=== PATIENT | male | born 1965 ===

== ENCOUNTER 2017-10-24 14:28 | Emergency (ER) | payer OTHER ==
--- NOTE | 2017-10-24 17:00 | ED PDOC ---
Lower Extremity Pain/Injury Time Seen by Provider: 10/24/17 16:06 Chief Complaint (Nursing): Lower Extremity Problem/Injury Chief Complaint (Provider): Lower Extremity Problem/Injury History Per: Patient, Family (daughter) History/Exam Limitations: no limitations Onset/Duration Of Symptoms: Days (x1 month) Current Symptoms Are (Timing): Still Present Severity: Mild Pain Scale Rating Of: 6 Additional History Per: Family (daughter at bedside) Additional Complaint(s): 52 year old male presents to the emergency department with daughter for an evaluation of right knee pain, which is exacerbated with bending and has been ongoing for 1 month. Patient reported taking 2 tablets of Motrin for pain with last dose at 1000 earlier today with mild relief. Denies any injury or fall. 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 Patient denies any history of knee injury, leg swelling, hip pain, calf tenderness, fever, dyspnea , cough, chest pain, prolonged immobility, and has no history of blood clot. PMD: Dr. Mccabe - Risk Factors DVT Risk Factors: Pos: None Past Medical History Reviewed: Historical Data, Nursing Documentation, Vital Signs Vital Signs: Last Vital Signs Temp 98.2 F 10/24/17 14:30 Pulse 70 10/24/17 14:30 Resp 16 10/24/17 14:30 BP 142/83 10/24/17 14:30 Pulse Ox 99 10/24/17 14:30 - Medical History PMH: No Chronic Diseases - Surgical History Surgical History: No Surg Hx - Family History Family History: States: Unknown Family Hx - Living Arrangements Living Arrangements: With Family - Social History Current smoker - smoking cessation education provided: Yes Alcohol: Social Drugs: Denies - Home Medications Home Medications: Ambulatory Orders Medication Instructions Recorded Meloxicam [Mobic] 15 mg PO DAILY PRN #14 tab 10/24/17 - Allergies Allergies/Adverse Reactions: Allergies Allergy/AdvReac Type Severity Reaction Status Date / Time No Known Allergies Allergy Verified 10/24/17 14:30 Review of Systems ROS Statement: Except As Marked, All Systems Reviewed And Found Negative Constitutional: Negative for: Fever, Chills, Sweats Cardiovascular: Negative for: Chest Pain Respiratory: Negative for: Cough, Shortness of Breath, Hemoptysis, SOB with Exertion Gastrointestinal: Negative for: Vomiting, Abdominal Pain Musculoskeletal: Positive for: Leg Pain (right knee) Neurological: Negative for: Weakness, Numbness Physical Exam - Reviewed Nursing Documentation Reviewed: Yes Vital Signs Reviewed: Yes - Physical Exam Appears: Positive for: Well, Non-toxic, No Acute Distress Head Exam: Positive for: ATRAUMATIC, NORMOCEPHALIC Skin: Positive for: Warm, Dry Eye Exam: Positive for: EOMI, PERRL Neck: Positive for: Supple Cardiovascular/Chest: Positive for: Regular Rate, Rhythm Respiratory: Positive for: Normal Breath Sounds. Negative for: Decreased Breath Sounds, Accessory Muscle Use, Respiratory Distress Pulses-Dorsalis Pedis (L): 2+ Pulses-Dorsalis Pedis (R): 2+ Extremity: Positive for: Normal ROM (of hip, knee, and ankle of right lower extremity), Tenderness (medial aspect of right knee), Other ((-) effusion (-) crepitus (-) overlying skin changes (-) distal NV deficit of right lower extremity.). Negative for: Pedal Edema, Calf Tenderness (bilateral), Deformity , Swelling Neurologic/Psych: Positive for: Alert, Oriented - ECG O2 Sat by Pulse Oximetry: 99 (RA) Pulse Ox Interpretation: Normal Medical Decision Making Medical Decision Making: Initial Impression: Right knee pain Initial Plan: * Xray knee (right) 1700 XR reviewed by provider, no acute fracture or dislocation (+) mild degenerative changes. Patient notified official radiology read will be available in 24 hours and that he will be notified of any discrepancies by phone. Patient agreeable to discharge at this time. RICE encouraged. Follow up with PMD/ortho in 1-2 days without fail. Return to ED with any new or worsening symptoms. Scribe Attestation: Documented by Roslyn Sweet, acting as a scribe for Farheen K. Christine PA-C. Provider Scribe Attestation: All medical record entries made by the Scribe were at my direction and personally dictated by me. I have reviewed the chart and agree that the record accurately reflects my personal performance of the history, physical exam, medical decision making, and the department course for this patient. I have also personally directed, reviewed, and agree with the discharge instructions and disposition. Disposition - Clinical Impression Clinical Impression: Acute knee pain, Osteoarthritis - Patient ED Disposition Is Patient to be Admitted: No Counseled Patient/Family Regarding: Studies Performed, Diagnosis, Need For Followup, Rx Given - Disposition Referrals: El Bello III, MD [Staff Provider] - [facility] [Outside] Disposition: Routine/Home Disposition Time: 17:08 Condition: STABLE Additional Instructions: REST ICE COMPRESSION BANDAGE ELEVATE EXTREMITY Prescriptions: Meloxicam [Mobic] 15 mg PO DAILY PRN #14 tab PRN Reason: Pain, Moderate (4-7) Instructions: Osteoarthritis, Knee Pain Forms: [facility] (Italian) Print Language: MOSOT[place] - POA Present On Arrival: None
[2017-10-24 17:20] VITALS: BP 120/78; PULSE 78; RESP 18; TEMP 97
--- NOTE | 2017-10-24 18:15 | RAD ---
PROCEDURE: Right Knee Radiographs. HISTORY: pain COMPARISON: None. FINDINGS: BONES: No evidence of acute fracture JOINTS: Mild osteoarthritic changes JOINT EFFUSION: None. OTHER FINDINGS: None. IMPRESSION: No evidence of acute fracture or dislocation. Mild osteoarthritic changes.
[2017-10-24 22:51] VITALS: O2SAT 99
== END 2017-10-24 17:20 | disposition home or self-care (01) ==
LOC: H.ER 14:28
DX: M17.11 Unilateral primary osteoarthritis, right knee (principal)